=== PATIENT | male | born 1985 | race Caucasian/White ===

== ENCOUNTER 2025-04-17 04:09 | Emergency (ER) | payer SELFPAY ==
[2025-04-17 04:13] VITALS: BMI 25.8
[2025-04-17 04:14] VITALS: BP 119/54; PULSE 111; RESP 18; TEMP 36.6; O2SAT 119
--- NOTE | 2025-04-17 05:02 | PC.NURSE ---
pt was not in room or in lobby
--- NOTE | 2025-04-17 05:50 | PD.EDADDENDU ---
Emergency Room Addendum Addendum Narrative: When I looked for the patient to start my evaluation, I was told the patient eloped. Jameson Wayne MD
--- NOTE | 2025-04-17 07:00 | PC.NURSE ---
no answer when called for room in ed
--- NOTE | 2025-04-17 07:42 | PC.NURSE ---
no answer when called for room in ed
--- NOTE | 2025-04-17 07:45 | PC.NURSE ---
PT CALLED, NO ANSWER.
--- NOTE | 2025-04-17 07:53 | PC.NURSE ---
CALLED PT IN LOBBY AND OUTSIDE; NO ANSWER.
== END 2025-04-17 07:54 | disposition left against medical advice (07) ==
PROVIDERS: Emergency Provider Emergency Medicine
DX: Z53.21 Procedure and treatment not carried out due to patient leaving prior to being seen by health care provider (principal)
CPT/HCPCS: 99282

== ENCOUNTER 2025-05-07 21:02 | Emergency (ER) | payer SELFPAY ==
[2025-05-07 21:03] VITALS: BMI 24.2
[2025-05-07 21:15] VITALS: BP 112/72; PULSE 83; RESP 18; TEMP 37; O2SAT 97
--- NOTE | 2025-05-07 22:42 | XR_ITS ---
Examination: Right wrist 2 views TECHNIQUE: AP lateral right wrist 2 views Date and time: May 07, 2025 10:51 PM INDICATIONS: Tinnitus today, wrist pain. FINDINGS: No acute fracture No dislocation No foreign body IMPRESSION: No acute fracture
--- NOTE | 2025-05-07 23:51 | EDNOTE_ITS ---
Upper Extremity Injury RME/HPI General Chief Complaint: Hand/Wrist Problems Stated Complaint: RIGHT WRIST INJURY Time Seen by Provider: 05/07/25 22:34 Source: patient Arrival date/time: 05/07/25 21:02 This is a case of 40-year-old male with no medical history came in in the emergency room due to right wrist pain history of present illness today when the patient accidentally hit his right wrist on a wall sustaining pain and swelling patient denies any hand pain or any other injury persistence of the symptoms this patient decided to sought consult here in the emergency room Limitations: no limitations Related Data Previous Rx's ?Medication ?Instructions ?Recorded ondansetron HCl 4 mg tablet 4 mg PO QID PRN nausea and 03/22/20 (Zofran) vomiting #10 tabs amoxicillin 875 mg-potassium 1 tab PO BID #20 tabs clavulanate 125 mg tablet mupirocin 2 % topical ointment 1 applic topical TID #5 0 grams 07/13/23 ibuprofen 600 mg tablet 600 mg PO Q8H PRN pain #20 t abs 05/07/25 Allergies Allergy/AdvReac Type Severity Reaction Status Date / Time No Known Allergies Allergy Verified 05/07/25 21:03 Review of Systems Review of Systems Systems Reviewed: All systems reviewed, normal except as documented Constitutional Constitutional: Reports system reviewed and no additional complaints, except as documented and Reports as per HPI Cardiovascular Cardiovascular: Reports system reviewed and no additional complaints, except as documented and Reports as per HPI Respiratory Respiratory: Reports system reviewed and no additional complaints, except as documented and Reports as per HPI Gastrointestinal Gastrointestinal: Reports system reviewed and no additional complaints, except as documented and Reports as per HPI Musculoskeletal Musculoskeletal: Reports system reviewed and no additional complaints, except as documented and Reports as per HPI Neurologic Neurologic: Reports system reviewed and no additional complaints, except as documented and Reports as per HPI Past Medical History Past Medical History CARDIAC: Negative Cardiac Disorders or Congestive Heart Failure RESPIRATORY: Negative Chronic Obstructive Pulmonary Disease (COPD) GENITOURINARY: Negative Renal Disease ENDOCRINE: Negative Endocrine Disorders, Diabetes Mellitus Type 1 or Diabetes Mellitus Type 2 PSYCHO/SOCIAL: Positive Psychiatric Problems and Schizophrenia Family History FAMILY HISTORY: Negative Family Cardiac Disorders Social History SMOKING STATUS: Current some day smoker SUBSTANCE USE: marijuana and methamphetamine ED Exam General Limitations: Present no limitations General appearance: Present alert, in no apparent distress and other (Patient is awake alert oriented not in distress nontoxic looking well-hydrated well- nourished) Head Head exam: Present atraumatic, normocephalic and normal inspection Eye Eye exam: Present normal appearance, PERRL and EOMI ENT ENT exam: Present normal exam, normal oropharynx and mucous membranes moist Neck Neck exam: Present normal inspection, full ROM and trachea midline Chest Chest inspection: Present normal inspection and symmetric chest wall rise Respiratory Respiratory exam: Present normal lung sounds bilaterally; Absent respiratory distress, wheezes, stridor, accessory muscle use or prolonged expiratory phase Cardiovascular Cardiovascular exam: Present regular rate, normal rhythm and normal heart sounds; Absent bradycardia, tachycardia, irregular rhythm, systolic murmur or diastolic murmur Abdominal Exam Abdominal exam: Present soft and normal bowel sounds Extremities Exam Extremities exam: Present normal inspection and full ROM Expanded Upper Extremity Exam Forearm/Wrist exam: Present tenderness (Mild tenderness around the right wrist), swelling (Mild swelling) and other (ROM intact but with pain pulses were full and equal capillary refill less than 2 seconds motor sensory reflex were normal); Absent abrasion, laceration, ecchymosis, deformity, crepitus, dislocation, erythema, tenderness over anatomical snuff box or pain with axial thumb loading Hand exam: Present normal inspection and full ROM; Absent tenderness or swelling Back Exam Back exam: Present normal inspection and full ROM Neurological Exam Neurological exam: Present alert, oriented X3, CN II-XII intact, normal gait and reflexes normal; Absent motor sensory deficit Psychiatric Psychiatric exam: Present normal affect and normal mood Skin Skin exam: Present warm, dry, intact and normal color Course Quality Measures none Orders Category Date Time Status XR wrist RT 2V Stat Exams 05/07/25 22:42 Completed Vital Signs Vital signs: Vital Signs Temperature 98.6 F 05/07/25 21:15 Pulse Rate 83 05/07/25 21:15 Respiratory Rate 18 05/07/25 21:15 Blood Pressure 112/72 05/07/25 21:15 Pulse Oximetry (%) 97 05/07/25 21:15 Oxygen Delivery Method Room Air 05/07/25 21:15 Patient oxygen saturation is 97% on room air Extremity Injury MDM Narrative MDM Narrative:: This is a case of 40-year-old male with no medical history came in in the emergency room due to right wrist pain history of present illness today when the patient accidentally hit his right wrist on a wall sustaining pain and swelling patient denies any hand pain or any other injury persistence of the symptoms this patient decided to sought consult here in the emergency room physical examination patient is awake alert oriented not in distress nontoxic looking well-hydrated well-nourished mild to moderate tenderness on the right wrist with mild swelling no crepitation no deformity no redness no swelling no cellulitis ROM intact but with pain neurovascular intact x-rays showed no fracture no dislocation Nemesio wrap was applied to the right wrist patient tolerated well neurovascular intact RICE treatment was discussed with the patient patient understood very well patient was prescribed ibuprofen for pain patient will follow-up with PCP for reevaluation and for any worsening symptoms or any emergent concern he will return in the emergency room immediately or call 911 Patient was discharged with comfortable condition walking with stable gait. Patient verbalized no further complains explained diagnosis and answered patient question. Patient is comfortable with the proposed management plan including the need to follow up with his/her primary care physician and any specialist if applicable Discussed patient for any urgent condition or worsening sx, He/She needed to go to emergency room immediately or call 911. Patient acknowledge the responsibility to follow up as instructed and to monitor her/his symptoms. For any persistence of the symptoms for more than 3-5 days return precaution advised. Discussed the result of the test and was given printed discharge instruction Patient data External records reviewed:: [facility] previous records Clinical information provided by:: patient Social determinants that could affect healthcare access:: none Patient has the following chronic illnesses:: None How is presenting disease/condition affected by chronic disease/condition?: no chronic disease Evaluation data The following diagnostics were reviewed and interpreted by me:: radiology exam(s) Lab and/or radiology exams considered but not ordered:: Reviewed Interpretation Summary: Reviewed Medications / Prescriptions Medications or Prescriptions considered but not ordered:: Given Medication administrations:: Given Consultations Consultation(s) initiated? (list below): No Diagnosis Upper Extremity Injury Differential Diagnosis: sprain and strain of wrist Most likely diagnosis given after review of the tests above:: Right wrist sprain Admission Indicated Admission indicated?: not indicated Explain why admission is indicated or not indicated:: Not indicated Admission Request Was there a request for admission?: No Admission Attestation Admission request attestation: Not indicated Disposition Plan Disposition Plan: Discharge Discharge Attestation Discharge Attestation: The patient and all family members were given an opportunity to ask questions and understood the discharge instructions. Discharge instructions specifically effects, indications for sooner follow up or return to the emergency department, and the expected course of current diagnosis. Patient condition: Stable Discharge Plan Plan Patient Disposition: HOME (Self Care) Patient condition on transfer: Stable Prescriptions/Referrals Prescriptions/Med Rec: New ibuprofen 600 mg tablet 600 mg PO Q8H PRN (Reason: pain) Qty: 20 0RF No Action ondansetron HCl [Zofran] 4 mg tablet 4 mg PO QID PRN (Reason: nausea and vomiting) Qty: 10 0RF amoxicillin-pot clavulanate 875-125 mg tablet 1 tab PO BID Qty: 20 0RF mupirocin 2 % ointment 1 applic topical TID Qty: 50 0RF Problem List Clinical Impression: Right wrist sprain Patient/Caregiver Discharge Instructions Education Materials: ED NEMESIO Wrap, ED Wrist Sprain, ED RICE Additional Instructions: Follow-up with your primary care physician in 2 days for reevaluation worsening symptoms or any emergent concern call 911 or go to the nearest emergency room ice pack every 2 hours for 20 minutes for 24 hours then alternate with warm compress elevate to decrease swelling keep the Nemesio bandage in place until cleared by your primary care physician Zia Tylenol for pain Print Language: Anguillan Stand Alone Forms: Lo Award Info., Patient Portal Info Letter PA/OPERATIONAL RISK MANAGER Supervising Physician PA/TATE Supervising Physician: DR sequeira
== END 2025-05-07 23:56 | disposition home or self-care (01) ==
PROVIDERS: Emergency Provider Emergency Medicine; PCP Family Medicine
DX: S63.501A Unspecified sprain of right wrist, initial encounter (principal); W22.01XA Walked into wall, initial encounter
CPT/HCPCS: 73100; 99283

== ENCOUNTER 2025-06-16 22:47 | Emergency (ER) | payer SELFPAY ==
[2025-06-16 22:48] VITALS: BMI 24.2
[2025-06-16 23:52] VITALS: BP 137/86; PULSE 86; RESP 17; TEMP 36.7; O2SAT 100
--- NOTE | 2025-06-16 23:55 | EDRME_ITS ---
Rapid Medical Screening Exam [facility] Arrival date/time: 06/16/25 22:47 40M with history of drug use presents to ED wanting to get checked for toxins. Patient does not want meds for his N/V. Chief Complaint: Nausea/Vomiting/Diarrhea Vital signs: Vital Signs Temperature 98.1 F 06/16/25 23:52 Pulse Rate 86 06/16/25 23:52 Respiratory Rate 17 06/16/25 23:52 Blood Pressure 137/86 H 06/16/25 23:52 Pulse Oximetry (%) 100 06/16/25 23:52 Oxygen Delivery Method Room Air 06/16/25 23:52
== END 2025-06-17 00:01 | disposition left against medical advice (07) ==
LOC: SERX 23:59
PROVIDERS: Emergency Provider Emergency Medicine
DX: R11.2 Nausea with vomiting, unspecified (principal); Z53.21 Procedure and treatment not carried out due to patient leaving prior to being seen by health care provider
CPT/HCPCS: 99281

== ENCOUNTER 2025-06-20 23:15 | Emergency (ER) | payer SELFPAY ==
[2025-06-20 23:15] VITALS: BMI 24.2
[2025-06-20 23:41] VITALS: BP 124/87; PULSE 99; RESP 16; TEMP 36.9; O2SAT 99
--- NOTE | 2025-06-20 23:43 | EDNOTE_ITS ---
Nausea/Vomit./Diarrhea-RME/HPI General Chief complaint: Abdominal Pain Stated complaint: ABD PAIN Time Seen by Provider: 06/20/25 23:17 Source: patient, RN notes reviewed and old records reviewed Arrival date/time: 06/20/25 23:15 Mode of arrival: ambulatory Limitations: no limitations RME / HPI RME / HPI Narrative: 40yom presents to ED for nausea and 3 episodes of vomiting since this morning. No sick contacts or suspected food poisoning. Patient denies fever, diarrhea, abdominal/flank pain or urinary symptoms. No medications or treatments since onset. Related Data Previous Rx's ?Medication ?Instructions ?Recorded ondansetron HCl 4 mg tablet 4 mg PO QID PRN nausea and 03/22/20 (Zofran) vomiting #10 tabs amoxicillin 875 mg-potassium 1 tab PO BID #20 tabs clavulanate 125 mg tablet mupirocin 2 % topical ointment 1 applic topical TID #5 0 grams 07/13/23 ibuprofen 600 mg tablet 600 mg PO Q8H PRN pain #20 t abs 05/07/25 ondansetron 4 mg disintegrating 4 mg PO Q6H PRN nausea and 06/21/25 tablet vomiting #10 tabs Allergies Allergy/AdvReac Type Severity Reaction Status Date / Time No Known Allergies Allergy Verified 06/16/25 22:49 Review of Systems Review of Systems Systems Reviewed: All systems reviewed, normal except as documented Constitutional Constitutional: Denies chills and Denies fever(s) Gastrointestinal Gastrointestinal: Denies abdominal pain, Denies loose stools, Reports nausea and Reports vomiting Genitourinary Genitourinary: Denies flank pain and Denies hematuria Past Medical History Past Medical History PSYCHO/SOCIAL: Positive Recreational Drug Use Surgical History OTHER SURGICAL HX: Denies past surgical history Social History SMOKING STATUS: Current every day smoker SUBSTANCE USE: marijuana and methamphetamine ED Exam General Limitations: Present no limitations General appearance: Present alert, in no apparent distress and other (Poor hygiene) Head Head exam: Present atraumatic and normocephalic Eye Eye exam: Present normal appearance, PERRL and EOMI ENT ENT exam: Present normal exam and mucous membranes moist Neck Neck exam: Present normal inspection and full ROM Chest Chest inspection: Present normal inspection and symmetric chest wall rise Respiratory Respiratory exam: Present normal lung sounds bilaterally; Absent respiratory distress Cardiovascular Cardiovascular exam: Present regular rate and normal rhythm Abdominal Exam Abdominal exam: Present soft; Absent distention, tenderness, guarding or rebound Extremities Exam Extremities exam: Present normal inspection and full ROM Back Exam Back exam: Absent CVA tenderness (R) or CVA tenderness (L) Neurological Exam Neurological exam: Present alert and oriented X3 Psychiatric Psychiatric exam: Present normal affect and normal mood Skin Skin exam: Present warm, dry and intact Course Quality Measures none Orders Category Date Time Status CBC Stat Lab 06/20/25 23:42 Completed CMP [Comprehensive Metabolic Panel] Stat Lab 06/20/25 23:42 Completed Lipase Stat Lab 06/20/25 23:42 Completed UA [Urinalysis] Stat Lab 06/21/25 00:11 Completed Ondansetron Odt [Zofran Odt] Med 06/20/25 23:42 Discontinued 8 mg PO X1 ONE Vital Signs Vital signs: Vital Signs Temperature 98.4 F 06/20/25 23:41 Pulse Rate 99 06/20/25 23:41 Respiratory Rate 16 06/20/25 23:41 Blood Pressure 124/87 H 06/20/25 23:41 Pulse Oximetry (%) 99 06/20/25 23:41 Oxygen Delivery Method Room Air 06/20/25 23:41 Nausea/Vomiting/Diarrhea MDM Narrative MDM Narrative:: 40yom presents to ED for nausea and 3 episodes of vomiting since this morning. No sick contacts or suspected food poisoning. Patient denies fever, diarrhea, abdominal/flank pain or urinary symptoms. No medications or treatments since onset. Patient reassessed. Patient is feeling better, symptoms improved, tolerating po. Labs and exam reassuring. Most likely viral etiology of symptoms. Encouraged rest, fluids, symptomatic treatment prn. Stable for discharge, RTED precautions given. Patient data External records reviewed:: [facility] previous records (05/07/2025 ED visit for wrist sprain) Clinical information provided by:: patient Social determinants that could affect healthcare access:: other (specify) (Poor access to healthcare, history of drug use) Patient has the following chronic illnesses:: None How is presenting disease/condition affected by chronic disease/condition?: no chronic disease Evaluation data The following diagnostics were reviewed and interpreted by me:: lab results Lab and/or radiology exams considered but not ordered:: CT abdomen/pelvis: Denies abdominal pain, no tenderness on exam Interpretation Summary: No leukocytosis No anemia LFTs and lipase wnl Medications / Prescriptions Medications / Prescriptions considered but not ordered:: No antibiotics recommended at this time Medication administrations:: Medication Administration History Discontinued Medications Ondansetron HCl (Ondansetron Odt 4 Mg Tabrap) 8 mg PO X1 ONE; Protocol Stop: 06/20/25 23:43 Last Admin: 06/20/25 23:47 Dose: 8 mg Documented By: REINIER Above medication administered in ED Consultations Consultation(s) initiated? (list below): No Diagnosis Nausea Differential Diagnosis: food poisoning, gastroenteritis, dehydration and other (Electrolyte imbalance, viral illness, CHS) Most likely diagnosis given after review of the tests above:: Nausea/vomiting Admission Indicated Admission indicated?: not indicated Admission Request Was there a request for admission?: No Disposition Plan Disposition Plan: Discharge Discharge Attestation Discharge Attestation: The patient and all family members were given an opportunity to ask questions and understood the discharge instructions. Discharge instructions specifically effects, indications for sooner follow up or return to the emergency department, and the expected course of current diagnosis. Patient condition: Stable Discharge Plan Plan Patient Disposition: HOME (Self Care) Patient condition on transfer: Stable Prescriptions/Referrals Prescriptions/Med Rec: New ondansetron 4 mg tablet,disintegrating 4 mg PO Q6H PRN (Reason: nausea and vomiting) Qty: 10 0RF No Action ondansetron HCl [Zofran] 4 mg tablet 4 mg PO QID PRN (Reason: nausea and vomiting) Qty: 10 0RF amoxicillin-pot clavulanate 875-125 mg tablet 1 tab PO BID Qty: 20 0RF mupirocin 2 % ointment 1 applic topical TID Qty: 50 0RF ibuprofen 600 mg tablet 600 mg PO Q8H PRN (Reason: pain) Qty: 20 0RF Referrals: No Primary/Family,Physician [Primary Care Provider] - In 1 week Problem List Clinical Impression: Nausea & vomiting Patient/Caregiver Discharge Instructions Education Materials: ED Vomiting (Adult) Print Language: Kiswahili Stand Alone Forms: Lo Award Info., Patient Portal Info Letter PA/TANGLED YARN WORKER Supervising Physician PA/TANGLED YARN WORKER Supervising Physician: Rosana
[2025-06-20] MEDS: ONDANSETRON ODT 4 MG TABRAP 8 MG PO (23:47)
[2025-06-21 00:14] LABS: Basophils # (Auto) 0.0 Thou/mm3 (0.0-0.2); Basophils % (Auto) 1 % (0-2.5); Eosinophils # (Auto) 0.1 Thou/mm3 (0.0-0.5); Eosinophils % (Auto) 1 % (0-10); Hematocrit 39.0 % (41.0-53.0); Hemoglobin 13.2 g/dL (13.5-16.0); Immature Granulocytes Auto 0.02 Thou/mm3 (0.00-0.00); Lymphocytes # (Auto) 3.4 Thou/mm3 (1.0-4.8); Lymphocytes % (Auto) 41 % (10-50); Mean Corpuscular HGB Conc 33.8 g/dl (31.0-37.0); Mean Corpuscular Hemoglobin 29.8 pg (25.0-35.0); Mean Corpuscular Volume 88 fL (80-100); Monocytes # (Auto) 0.4 Thou/mm3 (0.0-0.8); Monocytes % (Auto) 5 % (0-12); Neutrophils # (Auto) 4.3 Thou/mm3 (1.8-7.7); Neutrophils % (Auto) 52 % (37-80); Nucleated Red Blood Cell # 0.00 Thou/mm3 (0.00-0.00); Nucleated Red Blood Cell % 0 /100 WBC (0); Platelet Count 199 Thou/mm3 (140-440); RDW Standard Deviation 39.7 fL (35.1-43.9); Red Blood Count 4.43 Miln/mm3 (4.50-5.90); White Blood Count 8.3 Thou/mm3 (3.8-10.6)
[2025-06-21 00:36] LABS: Alanine Aminotransferase 23 U/L (10-49); Albumin, Serum 4.4 gm/dL (3.5-5.0); Albumin/Globulin Ratio 1.8 (1.2-2.2); Alkaline Phosphatase 79 U/L (46-116); Anion Gap 5 (7-16); Aspartate Amino Transferase 26 U/L (0-34); BUN/Creatinine Ratio 8 Ratio (12-20); Bilirubin,Total 0.4 mg/dL (0.3-1.2); Blood Urea Nitrogen 10 mg/dL (9-23); Calcium 8.9 mg/dL (8.3-10.6); Calcium (Corrected) 8.9 mg/dL (8.5-10.1); Carbon Dioxide 30.3 mMol/L (20.0-31.0); Chloride 108 mMol/L (98-107); Creatinine (Component) 1.3 mg/dL (0.6-1.3); Estimated Creatinine Clearance 68.8 mL/min (>60); Globulin 2.5 gm/dL (2.3-3.5); Glucose 110 mg/dL (74-106); Lipase 34 U/L (12-53); Osmolality,Calculated 284 (275-295); Potassium 3.7 mMol/L (3.4-5.1); Sodium 143 mMol/L (136-145); Total Protein 6.9 gm/dL (5.7-8.2); eGFR > 60 See Note
--- NOTE | 2025-06-21 00:38 | PC.NURSE ---
SNACK AND WATER PROVIDED
[2025-06-21 01:17] LABS: Collection Type, Urine Clean Catch; Squamous Epithelial Cell,Urine 0 /hpf (0-5)
[2025-06-21 01:25] LABS: Bilirubin,Urine Negative (Negative); Blood,Urine Negative (Negative); Clarity,Urine Clear (Clear/Hazy); Color,Urine Yellow (Lt Yel-Yel); Glucose, Urine Negative (Negative); Ketones,Urine Negative (Negative); Leukocyte Esterase,Urine Negative (Negative); Nitrite,Urine Negative (Negative); PH,Urine 6.5 (5.0-7.0); Protein,Urine 1+ (Neg - Trace); RBC,Urine < 1 /hpf (0-3); Specific Gravity,Urine 1.034 (1.001-1.035); Urobilinogen,Urine 2.0 mg/dL (0.0-1.0); WBC,Urine < 1 /hpf (0-5)
[2025-06-21 01:28] LABS: Sperm,Urine Present
--- NOTE | 2025-06-21 01:28 | PC.NURSE ---
SECURITY SEEN PATIENT LEAVING BEFORE DC PAPERS
== END 2025-06-21 01:29 | disposition home or self-care (01) ==
PROVIDERS: Physician Assistant; Emergency Provider Emergency Medicine
DX: R11.2 Nausea with vomiting, unspecified (principal)
CPT/HCPCS: 36415; 80053; 81001; 83690; 85025; 99283; Q0162

== ENCOUNTER 2025-06-28 16:41 | Emergency (ER) | payer SELFPAY ==
--- NOTE | 2025-06-28 17:12 | PC.NURSE ---
CALLED FOR PT FROM LOBBY/OUTSIDE, NO ANSWERX1@ [phone]
--- NOTE | 2025-06-28 18:29 | PC.NURSE ---
CALLED FOR PT FROM LOBBY/OUTSIDE, NO ANSWERX2@ [phone]
== END 2025-06-28 18:29 | disposition left against medical advice (07) ==
LOC: SERX 19:05
PROVIDERS: Emergency Provider Emergency Medicine
DX: Z53.21 Procedure and treatment not carried out due to patient leaving prior to being seen by health care provider (principal)
CPT/HCPCS: 99281

== ENCOUNTER 2025-07-24 01:07 | Emergency (ER) | payer SELFPAY ==
[2025-07-24 01:08] VITALS: BMI 24.2
[2025-07-24 02:42] VITALS: BP 123/73; PULSE 84; RESP 18; TEMP 36.8; O2SAT 99
--- NOTE | 2025-07-24 02:50 | PD.EDRME ---
Rapid Medical Screening Exam RME Arrival date/time: 07/24/25 01:07 This is a case of 40-year-old male with no medical history came into the emergency room due to generalized abdominal pain nausea vomiting no other symptoms worsening symptoms this patient decided to start consult in the emergency room Chief Complaint: Abdominal Pain Time Seen by Provider: 07/24/25 02:49 Vital signs: Vital Signs Temperature 98.2 F 07/24/25 02:42 Pulse Rate 84 07/24/25 02:42 Respiratory Rate 18 07/24/25 02:42 Blood Pressure 123/73 07/24/25 02:42 Pulse Oximetry (%) 99 07/24/25 02:42 Oxygen Delivery Method Room Air 07/24/25 02:42 Exam: Mild tenderness on both upper and lower abdomen no guarding no rebound no rigidity Clinical Impression: Abdominal pain
[2025-07-24 03:51] LABS: Basophils # (Auto) 0.1 Thou/mm3 (0.0-0.2); Basophils % (Auto) 1 % (0-2.5); Eosinophils # (Auto) 0.1 Thou/mm3 (0.0-0.5); Eosinophils % (Auto) 2 % (0-10); Hematocrit 41.7 % (41.0-53.0); Hemoglobin 14.4 g/dL (13.5-16.0); Immature Granulocytes Auto 0.01 Thou/mm3 (0.00-0.00); Lymphocytes # (Auto) 3.1 Thou/mm3 (1.0-4.8); Lymphocytes % (Auto) 33 % (10-50); Mean Corpuscular HGB Conc 34.5 g/dl (31.0-37.0); Mean Corpuscular Hemoglobin 30.8 pg (25.0-35.0); Mean Corpuscular Volume 89 fL (80-100); Monocytes # (Auto) 0.5 Thou/mm3 (0.0-0.8); Monocytes % (Auto) 6 % (0-12); Neutrophils # (Auto) 5.5 Thou/mm3 (1.8-7.7); Neutrophils % (Auto) 60 % (37-80); Nucleated Red Blood Cell # 0.00 Thou/mm3 (0.00-0.00); Nucleated Red Blood Cell % 0 /100 WBC (0); Platelet Count 198 Thou/mm3 (140-440); RDW Standard Deviation 41.4 fL (35.1-43.9); Red Blood Count 4.67 Miln/mm3 (4.50-5.90); White Blood Count 9.3 Thou/mm3 (3.8-10.6)
[2025-07-24 04:14] LABS: Alanine Aminotransferase 17 U/L (10-49); Albumin, Serum 4.8 gm/dL (3.5-5.0); Albumin/Globulin Ratio 2.3 (1.2-2.2); Alcohol, Blood Medical < 3.0 mg/dL (0-10.0); Alkaline Phosphatase 78 U/L (46-116); Anion Gap 5 (7-16); Aspartate Amino Transferase 26 U/L (0-34); BUN/Creatinine Ratio 9 Ratio (12-20); Bilirubin,Total 0.5 mg/dL (0.3-1.2); Blood Urea Nitrogen 9 mg/dL (9-23); Calcium 9.3 mg/dL (8.3-10.6); Calcium (Corrected) 9.3 mg/dL (8.5-10.1); Carbon Dioxide 32.5 mMol/L (20.0-31.0); Chloride 105 mMol/L (98-107); Creatinine (Component) 1.0 mg/dL (0.6-1.3); Estimated Creatinine Clearance 89.5 mL/min (>60); Globulin 2.1 gm/dL (2.3-3.5); Glucose 92 mg/dL (74-106); Lipase 278 U/L (12-53); Osmolality,Calculated 281 (275-295); Potassium 4.1 mMol/L (3.4-5.1); Sodium 142 mMol/L (136-145); Total Protein 6.9 gm/dL (5.7-8.2); eGFR > 60 See Note
== END 2025-07-24 03:56 | disposition left against medical advice (07) ==
PROVIDERS: Nurse Practitioner Family; Emergency Provider Emergency Medicine
DX: R10.84 Generalized abdominal pain (principal); Z53.29 Procedure and treatment not carried out because of patient's decision for other reasons; R11.2 Nausea with vomiting, unspecified
CPT/HCPCS: 36415; 80053; 80307; 80320; 81001; 83690; 85025; 99282; G0480

== ENCOUNTER 2025-08-03 02:58 | Emergency (ER) | payer MEDICAID, SELFPAY ==
[2025-08-03 03:03] VITALS: BP 139/79; PULSE 108; RESP 18; TEMP 36.8; O2SAT 97
[2025-08-03 03:04] VITALS: BMI 24.2
--- NOTE | 2025-08-03 03:09 | EKG_ITS ---
[facility] Test Date: 2025-08-03 Pat Name: CELIO TINAJERO Department: Room: - Gender: Male Department Head [employer] University: : 1985 Requested By: Arash Kingston Order Number: [id number] Reading MD: Arash Kingston Measurements Intervals Leslie Rate: 102 P: 76 DE: 136 QRS: 91 QRSD: 109 T: 58 QT: 349 QTc: 455 Interpretive Statements SINUS TACHYCARDIA BORDERLINE RIGHT AXIS DEVIATION [QRS AXIS > 90] ABNORMAL RHYTHM ECG No previous ECG available for comparison /store/S0/[id number].pdf
--- NOTE | 2025-08-03 03:34 | XR_ITS ---
EXAMINATION: AP chest single view TECHNIQUE: AP portable chest single view Date and time: August 03, 2025, 0343 hours INDICATIONS: Shortness of breath today FINDINGS: Normal heart size No pneumonia or pulmonary edema Osseous structures intact IMPRESSION: No active disease
--- NOTE | 2025-08-03 03:34 | PD.EDRME ---
Rapid Medical Screening Exam RME Arrival date/time: 08/03/25 02:58 40M with history of drug/homelessness presents to ED with 1 day of SOB. Some cough to the point of N/V. Chief Complaint: General Adult/Misc Complain Vital signs: Vital Signs Temperature 98.2 F 08/03/25 03:03 Pulse Rate 108 H 08/03/25 03:03 Respiratory Rate 18 08/03/25 03:03 Blood Pressure 139/79 H 08/03/25 03:03 Pulse Oximetry (%) 97 08/03/25 03:03 Oxygen Delivery Method Room Air 08/03/25 03:03 Exam: Clear lungs. Clinical Impression: anxiety vs drug/alcohol use vs CAP vs URI vs PE
--- NOTE | 2025-08-03 03:49 | PD.EDADULT ---
ED General RME/HPI General Chief complaint: General Adult/Misc Complain Stated complaint: DIFF BREATHING,MULTIPLE COMPLAINT Time Seen by Provider: 08/03/25 03:49 Arrival date/time: 08/03/25 02:58 RME / HPI RME / HPI narrative: 08/03/25 02:58 40M with history of drug/homelessness presents to ED with 1 day of SOB. Some cough to the point of N/V. Dr. Altman?s Main ED Evaluation: 40yo male presents to the ED stating I think I had an asthma attack . Patient states he feels somewhat better. Denies any shortness of breath, cough, fever, chills, or any other associated symptoms. Patient is requesting an inhaler. NKA. Related Data Previous Rx's ?Medication ?Instructions ?Recorded ondansetron HCl 4 mg tablet 4 mg PO QID PRN nausea and 03/22/20 (Zofran) vomiting #10 tabs amoxicillin 875 mg-potassium 1 tab PO BID #20 tabs 07/13/23 clavulanate 125 mg tablet mupirocin 2 % topical ointment 1 applic topical TID #50 grams 07/13/23 ibuprofen 600 mg tablet 600 mg PO Q8H PRN pain #20 tabs 05/07/25 ondansetron 4 mg disintegrating 4 mg PO Q6H PRN nausea and 06/21/25 tablet vomiting #10 tabs albuterol sulfate 90 mcg/actuation 2 inh inhalation Q4H PRN shortness 08/03/25 breath activated powder inhaler of breath #1 ea Allergies Allergy/AdvReac Type Severity Reaction Status Date / Time No Known Allergies Allergy Verified 07/24/25 01:13 Review of Systems Review of Systems Systems Reviewed: All systems reviewed, normal except as documented Past Medical History Past Medical History CARDIAC: Negative Cardiac Disorders or Congestive Heart Failure RESPIRATORY: Negative Chronic Obstructive Pulmonary Disease (COPD) GENITOURINARY: Negative Renal Disease ENDOCRINE: Negative Endocrine Disorders, Diabetes Mellitus Type 1 or Diabetes Mellitus Type 2 PSYCHO/SOCIAL: Positive Psychiatric Problems, Schizophrenia and Recreational Drug Use Family History FAMILY HISTORY: Negative Family Cardiac Disorders Social History SMOKING STATUS: Current every day smoker SUBSTANCE USE: marijuana and methamphetamine ED Exam Narrative Physical exam: Generally patient is alert no obvious distress, heart regular rate and rhythm, lungs show distant breath sounds bilaterally with good air exchange, chest shows no retractions, abdomen is soft no accessory muscle respiratory use, extremities show no edema, neurologic exam shows [place] Coma Scale of 15 Course Course Course Narrative: CXR is ordered for determining the etiology of shortness of breath. Quality Measures none Orders Category Date Time Status EKG (ED ONLY) *Do not use* NOW Care 08/03/25 03:09 Completed EKG (ED Only) Stat Exams 08/03/25 03:09 Draft XR chest 1V portable Stat Exams 08/03/25 03:34 Taken ALBUTEROL RT 0.5ml [Proventil Rt 0.5ml] Med 08/03/25 03:55 Discontinued 2.5 mg INH X1 ONE Ipratropium [place] Rt Ada [Atrovent Rt Ada] Med 08/03/25 03:55 Discontinued 0.5 mg INH X1 ONE Sodium Chloride Rt Ada 0.9% [NS Rt Ada 0.9%] Med 08/03/25 03:55 Active 3 ml INH PRN PRN Vital Signs Vital signs: Vital Signs Temperature 98.2 F 08/03/25 03:03 Pulse Rate 108 H 08/03/25 03:03 Respiratory Rate 18 08/03/25 03:03 Blood Pressure 139/79 H 08/03/25 03:03 Pulse Oximetry (%) 97 08/03/25 03:03 Oxygen Delivery Method Room Air 08/03/25 03:03 Discharge Plan Plan Patient Disposition: HOME (Self Care) Prescriptions/Referrals Prescriptions/Med Rec: New albuterol sulfate 90 mcg/actuation aerosol powdr breath activated 2 inh inhalation Q4H PRN (Reason: shortness of breath) Qty: 1 0RF No Action ondansetron HCl [Zofran] 4 mg tablet 4 mg PO QID PRN (Reason: nausea and vomiting) Qty: 10 0RF amoxicillin-pot clavulanate 875-125 mg tablet 1 tab PO BID Qty: 20 0RF mupirocin 2 % ointment 1 applic topical TID Qty: 50 0RF ibuprofen 600 mg tablet 600 mg PO Q8H PRN (Reason: pain) Qty: 20 0RF ondansetron 4 mg tablet,disintegrating 4 mg PO Q6H PRN (Reason: nausea and vomiting) Qty: 10 0RF Problem List Clinical Impression: Dyspnea Patient/Caregiver Discharge Instructions Education Materials: ED Shortness of Breath (Dyspnea) Additional Instructions: Use the inhaler as prescribed. Follow-up with your doctor. Print Language: Georgian Stand Alone Forms: Lo Award Info., Patient Portal Info Letter MDM Narrative MDM hospital course (for use when minimal MDM required): Scribe Attestation: 08/03/25 - Mary Clemente am scribing for and in the presence of Dr. Altman. Patient has been positive for methamphetamine and marijuana multiple times in the emergency room. He does smoke cigarettes. Patient received albuterol 2.5 mg and Atrovent 0.5 mg Med-Neb treatment x 1 here in the emergency room. Chest x-ray shows no consolidation no pneumothorax normal cardiac silhouette. I will send in a prescription for an albuterol inhaler for this patient. He is to stop methamphetamine. Clinical Information Provided by: patient Medical Records reviewed [facility] (Per chart review, patient was seen here on 06/20/25 for N/V.) Meds/Rx considered, not ordered None Labs/Rad/Tests considered, not ordered None Chronic Illness/Social Conditions which may negatively complicate care or outcome(s)-explain: Mental health (schizophrenia) and ETOH/drugs/substance abuse Imaging Imaging interpretation: interpreted by me Medication Administration(s) Medication Administration History Sodium Chloride (Sodium Chloride Rt Ada 0.9% 3 Ml Nebu) 3 ml INH PRN PRN PRN Reason: SOLN Stop: 09/02/25 03:54 Discontinued Medications Albuterol (Albuterol Rt 2.5 Mg/0.5 Ml Nebu) 2.5 mg INH X1 ONE Stop: 08/03/25 03:56 Ipratropium [place] (Ipratropium Rt 0.5 Mg/ 2.5 Ml Nebu) 0.5 mg INH X1 ONE Stop: 08/03/25 03:56 Diagnosis Differential Diagnosis ED Complaint MDM: See MDM
[2025-08-03 04:19] VITALS: PULSE 104
[2025-08-03] MEDS: ALBUTEROL RT 2.5 MG/0.5 ML NEBU INH (04:19)
[2025-08-03] MEDS: IPRATROPIUM RT 0.5 MG/ 2.5 ML NEBU INH (04:19)
[2025-08-03] MEDS: SODIUM CHLORIDE RT SOL 0.9% 3 ML NEBU INH (04:19)
[2025-08-03 04:25] VITALS: PULSE 79; RESP 16; TEMP 36.9; O2SAT 100
[2025-08-03 04:26] VITALS: PULSE 92; RESP 24; O2SAT 100
== END 2025-08-03 04:31 | disposition home or self-care (01) ==
LOC: SERX 04:19
PROVIDERS: Emergency Provider Emergency Medicine
DX: J45.909 Unspecified asthma, uncomplicated (principal)
CPT/HCPCS: 71045; 93005; 94640; 99283; J7644; J7611

== ENCOUNTER 2025-08-10 21:40 | Emergency (ER) | payer MEDICAID, SELFPAY ==
[2025-08-10 21:41] VITALS: BP 134/90; PULSE 100; RESP 18; TEMP 36.9; O2SAT 99
--- NOTE | 2025-08-10 22:29 | XR_ITS ---
Examination: CT cervical spine without contrast 2-D sagittal reconstructions 2-D coronal reconstructions 3-D reconstructions. Exam date and time: August 10, 2025, 1115 hours INDICATIONS: Injury to the neck 2 days ago, neck pain CTDI:vol (mGy) 13.4 DLP: (mGycm) 312 Technique: Multiple 2 mm axial sections of the cervical spine have been obtained. The coronal and sagittal reconstructions have been obtained. 3-D reconstructions have been obtained. Low dose protocols were performed. One or more of the following dose reduction techniques were used; automated exposure control, adjustment of the mA and/or KV according to patient size, use of iterative reconstruction technique. Findings: Axial sections demonstrate intact base of the skull. C1 exhibit satisfactory relationship to the odontoid. No acute cervical vertebral body fracture seen. Alignment posterior spinous processes satisfactory. Impression: No acute cervical fracture.
--- NOTE | 2025-08-10 22:29 | XR_ITS ---
Examination: CT brain head without contrast. 2-D sagittal coronal reconstructions Date and time of exam: August 10, 2025, 11:14 p.m. INDICATIONS: Injury to the top of the head 2 days ago, head pain CTDI: vol (mGy): 48.1 DLP: (mGycm): 886 Technique: Multiple CT axial sections of the brain have been obtained, 5 mm slice thickness. Contrast has not been administered. 2-D sagittal, coronal reconstructions have been obtained Low dose protocols were performed. One or more of the following dose reduction techniques were used; automated exposure control, adjustment of the mA and/or KV according to patient size, use of iterative reconstruction technique. Findings: No significant ventricular enlargement. Intra-axial or extra-axial hemorrhage density is not seen. No mass effect or midline shift Basal cisterns are not remarkable. Fourth ventricle is midline. Cranial vault intact. Impression: Limited study secondary to patient motion No hemorrhage mass effect or midline shift noted
--- NOTE | 2025-08-10 22:30 | EDNOTE_ITS ---
ED Neck Injury Pain RME/HPI General Chief Complaint: General Adult/Misc Complain Stated Complaint: NECK ,WAIST, AND FOOT PAIN Time Seen by Provider: 08/10/25 22:29 Arrival date/time: 08/10/25 21:40 40M with history of drug use/homelessness presents to ED with neck pain after he stood up and hit head on a bridge. Limitations: no limitations Related Data Previous Rx's ?Medication ?Instructions ?Recorded ondansetron HCl 4 mg tablet 4 mg PO QID PRN nausea and 03/22/20 (Zofran) vomiting #10 tabs amoxicillin 875 mg-potassium 1 tab PO BID #20 tabs clavulanate 125 mg tablet mupirocin 2 % topical ointment 1 applic topical TID #5 0 grams 07/13/23 ibuprofen 600 mg tablet 600 mg PO Q8H PRN pain #20 t abs 05/07/25 ondansetron 4 mg disintegrating 4 mg PO Q6H PRN nausea and 06/21/25 tablet vomiting #10 tabs albuterol sulfate 90 mcg/actuation 2 inh inhalation Q4 H PRN shortness 08/03/25 breath activated powder inhaler of breath #1 ea Allergies Allergy/AdvReac Type Severity Reaction Status Date / Time No Known Allergies Allergy Verified 08/10/25 21:41 Review of Systems Review of Systems Systems Reviewed: All systems reviewed, normal except as documented ENT Ears, Nose, Mouth, and Throat: Reports neck pain Musculoskeletal Musculoskeletal: Reports as per HPI and Reports neck pain Past Medical History Past Medical History CARDIAC: Negative Cardiac Disorders or Congestive Heart Failure RESPIRATORY: Negative Chronic Obstructive Pulmonary Disease (COPD) GENITOURINARY: Negative Renal Disease ENDOCRINE: Negative Endocrine Disorders, Diabetes Mellitus Type 1 or Diabetes Mellitus Type 2 PSYCHO/SOCIAL: Positive Psychiatric Problems, Schizophrenia and Recreational Drug Use Family History FAMILY HISTORY: Negative Family Cardiac Disorders Social History SMOKING STATUS: Current every day smoker SUBSTANCE USE: marijuana and methamphetamine ED Exam General Limitations: Present no limitations General appearance: Present alert and in no apparent distress Head Head exam: Present atraumatic Neck Neck exam: Present trachea midline Chest Chest inspection: Present normal inspection and symmetric chest wall rise Neurological Exam Neurological exam: Present alert and oriented X3 Psychiatric Psychiatric exam: Present normal affect and normal mood Skin Skin exam: Present warm, dry, intact and normal color Course Quality Measures none Orders Category Date Time Status CT cervical spine wo con Stat Exams 08/10/25 22:[address] head/brain wo con Stat Exams 08/10/25 22:29 Completed Vital Signs Vital signs: Vital Signs Temperature 98.4 F 08/10/25 21:41 Pulse Rate 100 08/10/25 21:41 Respiratory Rate 18 08/10/25 21:41 Blood Pressure 134/90 H 08/10/25 21:41 Pulse Oximetry (%) 99 08/10/25 21:41 Oxygen Delivery Method Room Air 08/10/25 21:41 O2 at 99% on RA and WNLs Neck Pain MDM Narrative MDM Narrative:: 40M with history of drug use/homelessness presents to ED with neck pain after he stood up and hit head on a bridge. Physical exam reveals limited ROM of neck. Gait normal. Speech normal. Patient is afebrile, calm, and alert. CT unremarkable. Patient eloped. Patient data External records reviewed:: [facility] previous records Clinical information provided by:: patient Social determinants that could affect healthcare access:: housing Patient has the following chronic illnesses:: homelessness/drug use How is presenting disease/condition affected by chronic disease/condition?: exacerbated by Evaluation data The following diagnostics were reviewed and interpreted by me:: radiology exam(s) Lab and/or radiology exams considered but not ordered:: ordered Interpretation Summary: above Medications / Prescriptions Medications or Prescriptions considered but not ordered:: ordered Medication administrations:: above Consultations Consultation(s) initiated? (list below): No Diagnosis Neck Differential Diagnosis: disc disorder of cervical region, whiplash injury to neck, closed subluxation of cervical spine, fracture of cervical spine without lesion of spinal cord, cervical radiculopathy, vertebral artery dissection, torticollis, cervical spondylosis, strain of neck muscle and other (neck pain) Most likely diagnosis given after review of the tests above:: Neck pain Admission Indicated Admission indicated?: not indicated Admission Request Was there a request for admission?: No Disposition Plan Disposition Plan: other (specify) (eloped) Discharge Plan Plan Patient Disposition: Elopement Prescriptions/Referrals Prescriptions/Med Rec: No Action ondansetron HCl [Zofran] 4 mg tablet 4 mg PO QID PRN (Reason: nausea and vomiting) Qty: 10 0RF amoxicillin-pot clavulanate 875-125 mg tablet 1 tab PO BID Qty: 20 0RF mupirocin 2 % ointment 1 applic topical TID Qty: 50 0RF albuterol sulfate 90 mcg/actuation aerosol powdr breath activated 2 inh inhalation Q4H PRN (Reason: shortness of breath) Qty: 1 0RF ibuprofen 600 mg tablet 600 mg PO Q8H PRN (Reason: pain) Qty: 20 0RF ondansetron 4 mg tablet,disintegrating 4 mg PO Q6H PRN (Reason: nausea and vomiting) Qty: 10 0RF Referrals: Marcos Go MD [Primary Care Provider, Family Practice] - In 1 week Problem List Clinical Impression: Neck pain Patient/Caregiver Discharge Instructions Print Language: Mongolian PA/[employer]PER[employer] Supervising Physician PA/[employer] Supervising Physician: Dr. Wayne
== END 2025-08-11 03:21 | disposition left against medical advice (07) ==
PROVIDERS: Emergency Provider Emergency Medicine; PCP Family Medicine
DX: S19.9XXA Unspecified injury of neck, initial encounter (principal); S09.90XA Unspecified injury of head, initial encounter; Z59.00 Homelessness unspecified; X58.XXXA Exposure to other specified factors, initial encounter
CPT/HCPCS: 70450; 72125; 99282

== ENCOUNTER 2025-08-14 22:00 | Emergency (ER) | payer MEDICAID, SELFPAY ==
[2025-08-14 22:01] VITALS: BMI 24.2
[2025-08-14 22:18] VITALS: BP 118/73; PULSE 88; RESP 18; TEMP 37.1; O2SAT 96
--- NOTE | 2025-08-14 22:23 | XR_ITS ---
Examination: Abdomen sonogram, Limited Date and time of exam: August 14, 2025 10:55 p.m. INDICATIONS: Epigastric pain and vomiting onset today. Technique: Real-time hernandez scale transabdominal sonographic images of the upper abdomen obtained. Findings: Contracted gallbladder no gallstones Common bile duct 0.3 cm Pancreatic head 1.8 cm Liver 14.8 cm no liver lesions Normal hepatopetal portal venous flow Patent IVC IMPRESSION: Negative for cholelithiasis, negative for cholecystitis
--- NOTE | 2025-08-14 22:23 | PD.EDRME ---
Rapid Medical Screening Exam RME Arrival date/time: 08/14/25 22:00 This is a case of 40-year-old male who came into the emergency room due to both upper abdominal pain and epigastric pain for 2 days associated with nausea vomiting Chief Complaint: Abdominal Pain Time Seen by Provider: 08/14/25 22:21 Vital signs: Vital Signs Temperature 98.7 F 08/14/25 22:18 Pulse Rate 88 08/14/25 22:18 Respiratory Rate 18 08/14/25 22:18 Blood Pressure 118/73 08/14/25 22:18 Pulse Oximetry (%) 96 08/14/25 22:18 Oxygen Delivery Method Room Air 08/14/25 22:18 Exam: Moderate tenderness epigastric area no guarding no rebound no rigidity Clinical Impression: Abdominal pain
[2025-08-14 22:43] LABS: Basophils # (Auto) 0.1 Thou/mm3 (0.0-0.2); Basophils % (Auto) 1 % (0-2.5); Eosinophils # (Auto) 0.2 Thou/mm3 (0.0-0.5); Eosinophils % (Auto) 3 % (0-10); Hematocrit 39.7 % (41.0-53.0); Hemoglobin 13.6 g/dL (13.5-16.0); Immature Granulocytes Auto 0.01 Thou/mm3 (0.00-0.00); Lymphocytes # (Auto) 2.5 Thou/mm3 (1.0-4.8); Lymphocytes % (Auto) 31 % (10-50); Mean Corpuscular HGB Conc 34.3 g/dl (31.0-37.0); Mean Corpuscular Hemoglobin 30.7 pg (25.0-35.0); Mean Corpuscular Volume 90 fL (80-100); Monocytes # (Auto) 0.3 Thou/mm3 (0.0-0.8); Monocytes % (Auto) 4 % (0-12); Neutrophils # (Auto) 4.8 Thou/mm3 (1.8-7.7); Neutrophils % (Auto) 61 % (37-80); Nucleated Red Blood Cell # 0.00 Thou/mm3 (0.00-0.00); Nucleated Red Blood Cell % 0 /100 WBC (0); Platelet Count 221 Thou/mm3 (140-440); RDW Standard Deviation 41.9 fL (35.1-43.9); Red Blood Count 4.43 Miln/mm3 (4.50-5.90); White Blood Count 7.9 Thou/mm3 (3.8-10.6)
[2025-08-14 22:58] LABS: Alanine Aminotransferase 27 U/L (10-49); Albumin, Serum 4.5 gm/dL (3.5-5.0); Albumin/Globulin Ratio 2.0 (1.2-2.2); Alkaline Phosphatase 72 U/L (46-116); Anion Gap 5 (7-16); Aspartate Amino Transferase 29 U/L (0-34); BUN/Creatinine Ratio 19 Ratio (12-20); Bilirubin,Total 0.3 mg/dL (0.3-1.2); Blood Urea Nitrogen 19 mg/dL (9-23); Calcium 9.2 mg/dL (8.3-10.6); Calcium (Corrected) 9.2 mg/dL (8.5-10.1); Carbon Dioxide 29.8 mMol/L (20.0-31.0); Chloride 107 mMol/L (98-107); Creatinine (Component) 1.0 mg/dL (0.6-1.3); Estimated Creatinine Clearance 89.5 mL/min (>60); Globulin 2.3 gm/dL (2.3-3.5); Glucose 107 mg/dL (74-106); Lipase 52 U/L (12-53); Osmolality,Calculated 285 (275-295); Potassium 4.5 mMol/L (3.4-5.1); Sodium 142 mMol/L (136-145); Total Protein 6.8 gm/dL (5.7-8.2); eGFR > 60 See Note
[2025-08-15 00:35] LABS: Collection Type, Urine Clean Catch; Squamous Epithelial Cell,Urine 0 /hpf (0-5)
[2025-08-15 00:43] LABS: Bilirubin,Urine Negative (Negative); Blood,Urine Negative (Negative); Clarity,Urine Clear (Clear/Hazy); Color,Urine Lt-Yellow (Lt Yel-Yel); Glucose, Urine Negative (Negative); Hyaline Casts,Urine < 1 /hpf (0-1); Ketones,Urine Trace (Negative); Leukocyte Esterase,Urine Positive (Negative); Nitrite,Urine Negative (Negative); PH,Urine 6.0 (5.0-7.0); Protein,Urine Trace (Neg - Trace); RBC,Urine 1 /hpf (0-3); Specific Gravity,Urine 1.033 (1.001-1.035); Urobilinogen,Urine Negative mg/dL (0.0-1.0); WBC,Urine 1 /hpf (0-5)
[2025-08-15 01:18] VITALS: BP 100/66; PULSE 82; RESP 16; TEMP 36.6; O2SAT 97
[2025-08-15 01:30] LABS: Amphetamine/Methamp Scrn,U Positive (Negative); Barbiturate Screen,Urine Negative (Negative); Benzodiazepines Screen,Urine Negative (Negative); Benzoylecgonine Screen, Ur Negative (Negative); Fentanyl Screen,Urine Negative (Negative); Opiate Screen,Urine Negative (Negative); THC Screen,Urine Positive (Negative)
--- NOTE | 2025-08-15 01:39 | PD.EDABDPN ---
ED Abdominal Pain RME/HPI General Chief Complaint: Abdominal Pain Stated complaint: EPIGASTRIS PAIN AND VOMITING Time seen by provider: 08/14/25 22:21 Arrival date/time: 08/14/25 22:00 Limitations: no limitations RME / HPI RME / HPI narrative: 08/14/25 22:00 This is a case of 40-year-old male who came into the emergency room due to both upper abdominal pain and epigastric pain for 2 days associated with nausea vomiting Dr. Sutton's Main ED Evaluation: 40yo male presents to the ED for complaints of epigastric pain and nausea x yesterday morning. No radiation or migration. Patient reports not eating throughout the day yesterday due to being nauseated, so he came in for evaluation. Patient denies any fever, chills, vomiting, back pain, chest pain, shortness of breath, or any other associated symptoms. Admits to smoking marijuana daily. NKA. Related Data Previous Rx's ?Medication ?Instructions ?Recorded ondansetron HCl 4 mg tablet 4 mg PO QID PRN nausea and 03/22/20 (Zofran) vomiting #10 tabs amoxicillin 875 mg-potassium 1 tab PO BID #20 tabs 07/13/23 clavulanate 125 mg tablet mupirocin 2 % topical ointment 1 applic topical TID #50 grams 07/13/23 ibuprofen 600 mg tablet 600 mg PO Q8H PRN pain #20 tabs 05/07/25 ondansetron 4 mg disintegrating 4 mg PO Q6H PRN nausea and 06/21/25 tablet vomiting #10 tabs albuterol sulfate 90 mcg/actuation 2 inh inhalation Q4H PRN shortness 08/03/25 breath activated powder inhaler of breath #1 ea Allergies Allergy/AdvReac Type Severity Reaction Status Date / Time No Known Allergies Allergy Verified 08/14/25 22:04 Review of Systems Review of Systems Systems Reviewed: All systems reviewed, normal except as documented Past Medical History Past Medical History CARDIAC: Negative Cardiac Disorders or Congestive Heart Failure RESPIRATORY: Negative Chronic Obstructive Pulmonary Disease (COPD) GENITOURINARY: Negative Renal Disease ENDOCRINE: Negative Endocrine Disorders, Diabetes Mellitus Type 1 or Diabetes Mellitus Type 2 PSYCHO/SOCIAL: Positive Psychiatric Problems, Schizophrenia and Recreational Drug Use Family History FAMILY HISTORY: Negative Family Cardiac Disorders Social History SMOKING STATUS: Current every day smoker SUBSTANCE USE: marijuana and methamphetamine ED Exam General Limitations: Present no limitations General appearance: Present alert and in no apparent distress Head Head exam: Present atraumatic Eye Eye exam: Present normal appearance, PERRL and EOMI ENT ENT exam: Present normal exam, normal oropharynx and mucous membranes moist Neck Neck exam: Present normal inspection, full ROM and trachea midline Chest Chest inspection: Present normal inspection and symmetric chest wall rise Respiratory Respiratory exam: Present normal lung sounds bilaterally Cardiovascular Cardiovascular exam: Present regular rate, normal rhythm and normal heart sounds Abdominal Exam Abdominal exam: Present soft and normal bowel sounds Extremities Exam Extremities exam: Present normal inspection and full ROM Back Exam Back exam: Present normal inspection and full ROM Neurological Exam Neurological exam: Present alert, oriented X3 and CN II-XII intact Psychiatric Psychiatric exam: Present normal affect and normal mood Skin Skin exam: Present warm, dry, intact and normal color Course Quality Measures none Orders Category Date Time Status US gall bladder Stat Exams 08/14/25 22:23 Completed CBC Stat Lab 08/14/25 22:25 Completed Comprehensive Metabolic Panel Stat Lab 08/14/25 22:25 Completed Drug Screen,Urine Stat Lab 08/14/25 22:24 Completed Lipase Stat Lab 08/14/25 22:25 Completed Urinalysis Stat Lab 08/14/25 22:23 Completed Vital Signs Vital signs: Vital Signs Temperature 98.7 F 08/14/25 22:18 Pulse Rate 88 08/14/25 22:18 Respiratory Rate 18 08/14/25 22:18 Blood Pressure 118/73 08/14/25 22:18 Pulse Oximetry (%) 96 08/14/25 22:18 Oxygen Delivery Method Room Air 08/14/25 22:18 Abdominal Pain MDM MDM Narrative MDM Narrative:: Scribe Attestation: 08/15/25 - Mary Clemente am scribing for and in the presence of Dr. Sutton. Differential diagnosis includes hyperemesis secondary to marijuana use, dehydration, electrolyte abnormality, malingering. Patient presents to the emergency department with nausea. He states he last used marijuana 24 hours prior. Review of the labs show that the white count is 7.9 and normal. Hemoglobin is 13 and platelets of 221. No evidence of anemia, leukocytosis, or thrombocytopenia. Otherwise LFTs are essentially normal. Urinalysis shows slightly decreased and specific gravity which is consistent with dehydration. Trace ketones The patient is able to drink water here and is drinking asking for juice here in emergency department. Otherwise no evidence of UTI. Gallbladder is reviewed interpreted by me. No evidence of gallstones, wall thickening, or any polyps. Radiology interpretation is reviewed. All labs are reviewed and interpreted by me. Patient can tolerate liquids here in the emergency department. On reevaluation abdomen is soft nontender nondistended. Return precautions are given and understood. Patient data External records reviewed:: [facility] previous records (Per chart review, patient was seen here on 08/10/25 for neck pain.) Clinical information provided by:: patient Social determinants that could affect healthcare access:: substance use Patient has the following chronic illnesses:: schizophrenia How is presenting disease/condition affected by chronic disease/condition?: uneffected by Evaluation data The following diagnostics were reviewed and interpreted by me:: lab results and radiology exam(s) Lab and/or radiology exams considered but not ordered:: none Interpretation Summary: CBC normal, CMP normal, UA unremarkable, UDS positive for methamphetamines and marijuana. [facility] Report Signed Patient: CELIO TINAJERO [facility]. Record#: [id number] Birthdate: 1985 Age/Sex: 40 / M Location: [facility] Attending Dr: Ordering Physician: Radha Greco Date of Service: 08/14/25 Procedure(s): US gall bladder Accession Number(s): [id number] cc: Marcos Go MD; Michael Nieves MD; Radha Greco~ Examination: Abdomen sonogram, Limited Date and time of exam: August 14, 2025 10:55 p.m. INDICATIONS: Epigastric pain and vomiting onset today. Technique: Real-time hernandez scale transabdominal sonographic images of the upper abdomen obtained. Findings: Contracted gallbladder no gallstones Common bile duct 0.3 cm Pancreatic head 1.8 cm Liver 14.8 cm no liver lesions Normal hepatopetal portal venous flow Patent IVC IMPRESSION: Negative for cholelithiasis, negative for cholecystitis Dictated By: Michael Nieves MD Signed By: <Electronically signed by Michael Nieves MD in [place]> 08/14/25 8236 Medications / Prescriptions Medications or Prescriptions considered but not ordered:: none Medication administrations:: see above, if any Consultations Consultation(s) initiated? (list below): No Diagnosis Differential diagnosis abdominal pain: other (gallstones, dehydration, electrolyte abnormality, cannabinoid hyperemesis syndrome) Most likely diagnosis given after review of the tests above:: see clinical impression below Admission Indicated Admission indicated?: not indicated Admission Request Was there a request for admission?: No Disposition Plan Disposition Plan: Discharge Discharge Attestation Discharge Attestation: The patient and all family members were given an opportunity to ask questions and understood the discharge instructions. Discharge instructions specifically effects, indications for sooner follow up or return to the emergency department, and the expected course of current diagnosis. Patient condition: Stable Discharge Plan Plan Patient Disposition: HOME (Self Care) Patient condition on transfer: Stable Prescriptions/Referrals Prescriptions/Med Rec: No Action ondansetron HCl [Zofran] 4 mg tablet 4 mg PO QID PRN (Reason: nausea and vomiting) Qty: 10 0RF amoxicillin-pot clavulanate 875-125 mg tablet 1 tab PO BID Qty: 20 0RF mupirocin 2 % ointment 1 applic topical TID Qty: 50 0RF albuterol sulfate 90 mcg/actuation aerosol powdr breath activated 2 inh inhalation Q4H PRN (Reason: shortness of breath) Qty: 1 0RF ibuprofen 600 mg tablet 600 mg PO Q8H PRN (Reason: pain) Qty: 20 0RF ondansetron 4 mg tablet,disintegrating 4 mg PO Q6H PRN (Reason: nausea and vomiting) Qty: 10 0RF Referrals: Marcos Go MD [Primary Care Provider, Family Practice] - In 1 week Problem List Clinical Impression: Nausea Patient/Caregiver Discharge Instructions Education Materials: Cannabinoid Hyperemesis Syndrome Additional Instructions: I have given you information on what the marijuana can cause to include continuous nausea. Please see the discharge instructions concerning that. You want to stay hydrated with Pedialyte and/or Gatorade and drink enough water so you do not feel nauseous. Return to emergency department for worsening symptoms, or any other concerns. Print Language: Taiwanese Stand Alone Forms: Lo Award Info., Patient Portal Info Letter
== END 2025-08-15 01:50 | disposition home or self-care (01) ==
PROVIDERS: Nurse Practitioner Family; Emergency Provider Emergency Medicine; PCP Family Medicine
DX: R11.2 Nausea with vomiting, unspecified (principal)
CPT/HCPCS: 36415; 76705; 80053; 80307; 81001; 83690; 85025; 99283

== ENCOUNTER 2025-09-02 00:21 | Emergency (ER) | payer MEDICAID, SELFPAY ==
[2025-09-02 00:23] VITALS: BMI 24.2
[2025-09-02 00:45] VITALS: BP 153/94; PULSE 83; RESP 19; TEMP 36.4; O2SAT 98
== END 2025-09-02 02:40 | disposition left against medical advice (07) ==
LOC: SERX 02:02
PROVIDERS: Emergency Provider Emergency Medicine
DX: Z53.21 Procedure and treatment not carried out due to patient leaving prior to being seen by health care provider (principal)
CPT/HCPCS: 99281